=== PATIENT | female | born 1955 | race Caucasian/White ===

== ENCOUNTER → 2018-04-29 | Outpatient (CLI) | payer OTHER ==
[~2018-04-29] MED LIST: 0.9 % SODIUM CHLORIDE 10 ML VIAL ONE; BUPIVACAINE MPF 0.5% 30 ML VIAL. ONE; IOHEXOL 300 MG/ML 50 ML VIAL. ONE; LIDOCAINE 1% PF 30 ML VIAL. ONE; methylPREDNISolone ACETATE 80 MG/ML VIAL. ONE
== END | disposition home or self-care (01) ==
LOC: SURG 13:51
PROVIDERS: ATTEND Anesthesiology Pain Medicine
DX: M54.12 Radiculopathy, cervical region (principal); M54.2 Cervicalgia
CPT/HCPCS: 62321; J1040; J2001; J3490; Q9967

== ENCOUNTER → 2018-08-17 | Outpatient (CLI) | payer OTHER ==
--- NOTE | 2018-08-17 17:11 | RAD ---
PROCEDURE: CHEST PA LATERAL CLINICAL INDICATION: COUGH
COMPARISON: None FINDINGS: No pneumothorax identified. Cardiac and mediastinal contours unremarkable. No pulmonary consolidation or acute airspace disease. No acute osseous abnormalities identified. IMPRESSION: No pulmonary consolidation or acute airspace disease. Electronically signed by: Kaz Eldridge DO (08/17/2018 5:08 PM) [facility]
== END | disposition home or self-care (01) ==
LOC: PMG 15:05
PROVIDERS: ATTEND Registered Nurse
DX: R05 Cough (principal)
CPT/HCPCS: 71046

== ENCOUNTER → 2019-12-08 | Outpatient (CLI) | payer OTHER ==
--- NOTE | 2019-12-08 11:20 | RAD ---
EXAM: DUAL ENERGY X-RAY ABSORPTIOMETRY (DEXA). HISTORY: Postmenopausal screening. FINDINGS: The lowest measured T-score is -1.0 in the lumbar spine, based on a bone mineral density of 1.060 g/cm^2. Refer to the worksheets for full detail. No comparison examinations are available. IMPRESSION: Normal. Bone mineral density yields a T-score of -1.0 or greater. Fracture risk is low. FRAX was not calculated. METHODOLOGY: Dual energy x-ray absorptiometry was performed to measure bone mineral density. The following analysis is based on the 2019 Official Positions of the International Society for Clinical Densitometry: Measurements of the hips and the average of L1-L4 are preferred. When the spine and/or hip cannot be feasibly measured or interpreted, or in the setting of hyperparathyroidism, distal radial bone mineral density may be measured. The lumbar spine T-score is based on the average bone mineral density of L1-L4. In the setting of artifact or anatomic abnormality, some lumbar levels may be excluded, and the remaining levels used for calculation. A single lumbar level is not used for diagnosis, and if only a single level is available for assessment, another anatomic site will be used to assign a diagnosis. The hip T-score is based on the bone mineral density measurement of the femoral neck or total proximal femur of either side, whichever is lowest. Bilateral mean values are not used for diagnosis. The forearm T-score is derived from 33% of the distal radius of the nondominant forearm. For postmenopausal and perimenopausal women, and men age 50 or older, of all ethnic groups, T-scores are calculated through comparison of the current measurement with the NHANES III database standard for females aged 20-29 years. The lowest T-score of the evaluated anatomic sites is used to assign a diagnosis based on the World Health Organization densitometric classification. In premenopausal females and males younger than age 50, a Z-score is calculated based on population specific reference data for patient sex and self-reported ethnicity. Electronically signed by: Clifford Griffith MD (12/08/2019 11:17 AM) [id number]
== END ==
LOC: DXRAD 09:54
PROVIDERS: ATTEND Physician Assistant Medical
DX: Z78.0 Asymptomatic menopausal state (principal)
CPT/HCPCS: 77080

== ENCOUNTER → 2020-08-05 | Outpatient (CLI) | payer BC | LOC: LAB 09:52 | PROVIDERS: ATTEND Physician Assistant Medical | DX: E78.5 Hyperlipidemia, unspecified (principal) | CPT/HCPCS: 80061 ==

== ENCOUNTER → 2020-11-04 | Outpatient (CLI) | payer BC ==
--- NOTE | 2020-11-04 14:54 | RAD ---
3 views the right foot dated 11/04/2020. No comparison available. CLINICAL INDICATION: Foot pain after fall. FINDINGS: 3 views of the right foot show normal bony alignment. There is subtle cortical step-off at the neck o f the fourth metatarsal seen on the AP view. There is also subtle cortical irregularity at the neck o f the third metatarsal. No displaced fracture. Moderate hypertrophic change of the first MTP joint wi th mild degenerative changes of the interphalangeal joints. Mild soft tissue swelling. IMPRESSION: Suspected nondisplaced fractures of the third and fourth metatarsal neck. Electronically signed by: Clemente Thomas MD (11/04/2020 2:51 PM) [id number]
== END ==
LOC: RAD 14:35
PROVIDERS: ATTEND Family Medicine
DX: M79.89 Other specified soft tissue disorders (principal); M79.671 Pain in right foot; W19.XXXA Unspecified fall, initial encounter; Y93.89 Activity, other specified; Y92.89 Other specified places as the place of occurrence of the external cause; Y99.8 Other external cause status
CPT/HCPCS: 73630

== ENCOUNTER → 2020-11-10 | Outpatient (CLI) | payer BC ==
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
== END ==
LOC: PMG 07:58
PROVIDERS: ATTEND Nurse Practitioner Family
DX: S09.90XA Unspecified injury of head, initial encounter (principal); X58.XXXA Exposure to other specified factors, initial encounter; Y93.89 Activity, other specified; Y92.89 Other specified places as the place of occurrence of the external cause; Y99.8 Other external cause status
CPT/HCPCS: 70450